=== PATIENT | male | born 1985 | race Hispanic/Latino ===

== ENCOUNTER → 2024-02-10 11:48 | Outpatient (CLI) | payer OTHER, SELFPAY | LOC: PHYS 11:50 | DX: M25.529 Pain in unspecified elbow (principal) | CPT/HCPCS: 95886; 95910 ==

== ENCOUNTER → 2024-02-25 11:44 | Outpatient (CLI) | payer OTHER, SELFPAY ==
--- NOTE | 2024-02-25 11:44 | DI.US.S_ITS ---
PROCEDURE: US ABDOMEN LIMITED INDICATIONS: POSSIBLE HERNIA TECHNIQUE: Real-time focused scanning was performed of the abdomen, with image documentation. COMPARISON: [facility], , ABDOMEN LIMITED, 10/13/2015, 16:20. FINDINGS: Scan is performed at the area of clinical concern within the right lower quadrant. No abnormalities are seen, including with Valsalva maneuver. IMPRESSION: Negative ultrasound. No hernia. Dictated by: Derrick Saavedra M.D. on 02/25/2024 at 15:36 Approved by: Derrick Saavedra M.D. on 02/25/2024 at 15:37
== END ==
DX: K40.90 Unilateral inguinal hernia, without obstruction or gangrene, not specified as recurrent (principal)
CPT/HCPCS: 76705